=== PATIENT | female | born 1945 | race Caucasian/White ===

== ENCOUNTER 2020-05-22 06:30 | Day surgery (SDC) | payer MEDICARE ==
[~2020-05-22] VITALS: Ht 163.8 cm; Wt 69.5 kg
--- NOTE | 2020-05-22 08:30 | NUR ---
PT PRESENTS TO [facility] [place] VIA WHEEL CHAIR. PT TO B[facility] 1. PT REPORTS SOME MILD DISCOMFORT IN RIGHT BREAST R/T NEEDLE LOCALIZATION. SMALL AMOUNT OF BLOOD PRESENT TO 4X4 DRESSING. PT DENIES FURTHER COMPLAINTS AT THIS TIME. PT TO RESTROOM INDEPENDENTLY, GAIT STEADY.
--- NOTE | 2020-05-22 09:30 | NUR ---
PT REPORTS THAT SHE HAS A SMALL WOUND ON COCCYX. WOUND EVALUATED, SMALL WOUND SIZE OF DIME PRESENT TO RIGHT BUTTOCKS ON COCCYX. NO DRAINAGE, RED WITH WHITE IN COLOR. PT INSTRUCTED TO USE BARRIER CREAM, FREQUENT POSITION CHANGES, CONTINUE TO MONITOR. PT REPORTS IT HAS BEEN PRESENT 2 DAYS. 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 PT INSTRUCTED TO LET PCP KNOW THAT IT SEEMS TO BE RETURNING. PT VERBALIZES UNDERSTANDING.
[2020-05-22] MEDS ORDERED: AZULFIDINE500 MG/TAB PO (09:57)
[2020-05-22] MEDS ORDERED: PRINIVIL10 MG PO (09:57)
[2020-05-22] MEDS ORDERED: CALCIUM 600 MG1 EAC2 PO (09:58)
[2020-05-22] MEDS ORDERED: ONE-A-DAY ESSE1 EACH PO (09:58)
[2020-05-22] MEDS ORDERED: LINSEED OIL 1 ML1 ML PO ×2 (09:59→15:46)
[2020-05-22] MEDS ORDERED: TYLENOL 325MG325 MG PO (10:00)
--- NOTE | 2020-05-22 10:00 | NUR ---
RE-EVALUATED DRESSING TO RIGHT BREAST FROM NEEDLE LOCALIZATION. SMALL AMOUNT OF BLOOD UNCHANGED TO RIGHT BREAST. PT REPORTS STILL HAVING SLIGHT DISCOMFORT FROM NEEDLE LOCALIZATION, DENIES FURTHER COMPLAINTS.
[2020-05-22 10:10] VITALS: BP 124/69; PULSE 75; TEMP 98.4
[2020-05-22] MEDS ORDERED: NORCO 325 MG-51 TAB PO (15:47)
[2020-05-22] MEDS ORDERED: MOTRIN 600600 MG/TAB PO (15:47)
[2020-05-22 16:30] VITALS: BP 138/63; PULSE 72; TEMP 97.4
--- NOTE | 2020-05-22 16:30 | NUR ---
PT TO [facility] [place] [facility] VIA CART ACCOMPANIED BY [facility]. PT ALERT AND ORIENTED WHEN AROUSED BY NAME. VITALS WNL. PT HAS TWO INCISIONS TO RIGHT BREAST AND RIGHT AXILLA AREA. INCISIONS C/D/I. PT HAS INCISION TO RIGHT LOWER LEG COVERED WITH DRESSING. NICKEL SIZE AMOUNT OF BLOOD PRESENT TO DRESSING, NO CHANGE FROM PACU. PT HAS DRESSING TO RIGHT ARM JUST DISTAL TO ELBOW FROM SKIN TEAR, C/D/I. WATER PROVIDED. IVF INFUSING. PT REPORTS SLIGHT PAIN TO RIGHT BREAST, DENIES NAUSEA. PT DENIES FURTHER NEEDS AT THIS TIME. CALL LIGHT IN REACH, SPOUSE AT BEDSIDE.
[2020-05-22 16:45] VITALS: BP 129/57; PULSE 69
--- NOTE | 2020-05-22 16:45 | NUR ---
PT RESTING IN CART, DENIES NEEDS AT THIS TIME. VITALS WNL. PT ADJUSTED IN BED TO SIT UP STRAIGHT TO ASSIST WITH BREATHING. PT TOLERATES POSITION CHANGE WELL. WARM BLANKET PROVIDED. PT DENIES FOOD AT THIS TIME. CALL LIGHT IN REACH, SPOUSE AT BEDSIDE.
[2020-05-22 17:00] VITALS: BP 123/51; PULSE 75
--- NOTE | 2020-05-22 17:00 | NUR ---
PT RESTING IN CART, VITALS WNL. BLUEBERRY MUFFIN PROVIDED. PT REPORTS SLIGHT DISCOMFORT IN RIGHT BREAST, STATES IT IS JUST A "DULL PAIN". DENIES NEED FOR PAIN MEDICATION OR WARM BLANKET TO RIGHT BREAST. ORANGE JUICE ALSO PROVIDED. PT TOLERATING FLUIDS WELL. PT DENIES FURTHER NEEDS OR COMPLAINTS. CALL LIGHT IN REACH, SPOUSE AT BEDSIDE.
[2020-05-22 17:15] VITALS: BP 127/70; PULSE 74
--- NOTE | 2020-05-22 17:15 | NUR ---
PT ATE 1/2 BLUEBERRY MUFFIN AND DRANK 1/2 GLASS OF ORANGE JUICE WITHOUT DIFFICULTY. DENIES NAUSEA OR PAIN OTHER THAN SLIGHT RIGHT BREAST DISCOMFORT. IV DISCONTINUED. VITALS WNL. PT UP TO RESTROOM, AMBULATES INDEPENDENTLY WITH STEADY GAIT, DENIES DIZZINESS. PT RETURNS TO ROOM, CHANGED INTO PERSONAL CLOTHING INDEPENDENTLY.
--- NOTE | 2020-05-22 17:45 | NUR ---
DISCHARGE INSTRUCTIONS PROVIDED. PT AND SPOUSE VERBALIZE UNDERSTANDING, DENY FURTHER QUESTIONS OR COMPLAINTS.
--- NOTE | 2020-05-22 18:00 | NUR ---
PT DISCHARGED VIA WHEEL CHAIR TO PRIVATE VEHICLE DRIVEN BY SPOUSE. PT BELONGINGS AND DISCHARGE PACKET SENT WITH PT.
== END 2020-05-22 18:00 | disposition home or self-care (01) ==
LOC: SDCO 06:30 → COL.RAD 07:00 → SDCO 07:00
DX: C50.411 Malignant neoplasm of upper-outer quadrant of right female breast (principal); I10 Essential (primary) hypertension; K51.90 Ulcerative colitis, unspecified, without complications; Z79.899 Other long term (current) drug therapy; C44.712 Basal cell carcinoma of skin of right lower limb, including hip
CPT/HCPCS: A9541; J0690; J1100; J1885; J2250; J2405; J2704; J2795; J3010; J7120